=== PATIENT | female | born 1965 | race Two or more races ===

== ENCOUNTER 2022-08-04 15:34 | Emergency (ER) | payer SELFPAY ==
[~2022-08-04] VITALS: Ht 157.5 cm; Wt 68.0 kg
[2022-08-04 15:37] VITALS: BP 110/60; PULSE 108; RESP 14; TEMP 98.5; O2SAT 96
[2022-08-04 17:12] LABS: BASOPHILS % 0.4 % (0.0-2.0); EOSINOPHILS % 6.7 % (0.0-5.0); HEMATOCRIT. 47.2 % (36.0-48.0); HEMOGLOBIN. 15.9 g/dL (12.0-16.0); LYMPHOCYTES % 24.2 % (20.0-50.0); MEAN CORPUSCULAR HEMOGLOBIN 31.3 pg (28.0-32.0); MEAN CORPUSCULAR VOLUME 92.8 fL (81.0-99.0); MEAN PLATELET VOLUME 9.4 fl (7.4-10.4); MONOCYTES % 7.7 % (2.0-8.0); PLATELET 218 x1000/uL (130-400); RED BLOOD CELL COUNT 5.09 mill/uL (4.2-5.4); RED CELL DISTRIBUTION WIDTH 14.8 % (11.6-14.6)
[2022-08-04 17:22] LABS: PROTHROMBIN TIME 10.8 sec (9.6-11.0)
[2022-08-04 17:27] LABS: CHLORIDE 109 mEq/L (98-107)
== END 2022-08-05 00:02 | disposition left against medical advice (07) ==
LOC: ER 15:34
DX: K62.5 Hemorrhage of anus and rectum (principal); R10.84 Generalized abdominal pain; R19.7 Diarrhea, unspecified; J45.909 Unspecified asthma, uncomplicated; F17.210 Nicotine dependence, cigarettes, uncomplicated
CPT/HCPCS: 36415; 74176; 80053; 85025; 99284